=== PATIENT | male | born 1985 | race Two or more races ===

== ENCOUNTER 2016-09-15 11:01 | Emergency (ER) | payer OTHER ==
[~2016-09-15] VITALS: Wt 64.0 kg
[2016-09-15] MEDS ORDERED: LIDOCAINE 1% (MDV) 20 ML INJ SC ONE (12:30)
[2016-09-15] MEDS ORDERED: CEPH-443 PO (12:35)
[2016-09-15] MEDS ORDERED: HYDR-906 PO (12:35)
[2016-09-15] MEDS ORDERED: BACTDS PO (12:35)
[2016-09-15] MEDS ORDERED: NAPR-260 PO (12:35)
--- NOTE | 2016-09-15 15:09 | ERD ---
DATE OF SERVICE: 09/15/2016 HISTORY OF PRESENT ILLNESS: The patient is a 31-year-old male coming in complaining of an abscess t o his left buttock for the past few months. Patient states that it started draining 2 days ago. He has had no fevers. No changes in bowel movements, no pain around the rectum, no abdominal pain. Annie colon is not taking medications for his symptoms. He had similar abscesses in 2013, which was drained. PAST MEDICAL HISTORY: Denies. ALLERGIES: TO MEDICATIONS DENIED. PAST SURGICAL HISTORY: Appendectomy. SOCIAL HISTORY: Denies. REVIEW OF SYSTEMS: A 12-point review of systems was done. Refer to HPI for positives, all other sy stems negative. PHYSICAL EXAMINATION VITAL SIGNS: Temperature 98, pulse 92, blood pressure is 135/64, respiratory rate 21, O2 saturation 99% on room air. Pain intensity is 6/10. GENERAL: The patient is well-appearing, well-nourished, no acute distress. HEENT: Atraumatic. Conjunctivae are pink. Pupils equal, round, and reactive to light. There is no s cleral icterus. Tympanic membranes clear bilaterally. Oropharynx clear. No nystagmus or photophobia . NECK: C-spine is soft and supple. There is no meningismus. There is no cervical lymphadenopathy. No JVD. No bruits. No goiter. CHEST: Clear to auscultation bilaterally. There are no rales, wheezes or rhonchi. HEART: Regular rate and rhythm. No murmurs, clicks, rubs or gallops. No S3 or S4. ABDOMEN: Soft, nontender and nondistended. Good bowel sounds. No rebound or guarding. No gross lex tonitis. No gross organomegaly or masses. No Kaminski sign or McBurney point tenderness. SKIN: There is erythema and induration noted to the right buttock with mild discharge. There is no fluctuance. EMERGENCY ROOM COURSE: Site was cleaned copiously an approximately 2 mL of lidocaine were injected . A small 1 cm incision was made in both inferior and superior abscess site. Mild copious discharg e was extracted with mild bleeding. No packing was placed. There is no pocket developed. A pressu re bandage with Tegaderm was applied. DIAGNOSIS: Abscess incision and drainage. MEDICAL DECISION MAKING: I have low suspicion for perirectal abscess as patient does not have pain around the anus. Abscess is localized on the buttock only. Low suspicion for sepsis. DISCHARGE DISPOSITION: The patient is discharged stable. All other questions answered at time of d ischarge. Discharge summary given at the time of departure. Patient understood and complied with jarad arita. Dictated By: DONNA MOORE/JOSE Conf#: [id number] DID#: [id number]
== END 2016-09-15 13:30 | disposition home or self-care (01) ==
LOC: FTE 11:01
DX: L02.31 Cutaneous abscess of buttock (principal)
CPT/HCPCS: 10060; Z7502